=== PATIENT | male | born 1970 | race Caucasian/White ===

== ENCOUNTER 2019-04-29 05:40 | Day surgery (SDC) | payer BC ==
[2019-04-28 15:14] LABS: HEMATOCRIT 37.5 % (42.0-54.0); HEMOGLOBIN 12.6 g/dL (13.5-17.5); MCH 28.8 pg (26.0-34.0); MCHC 33.6 g/dL (31.0-37.0); MCV 85.8 fL (80.0-100.0); MEAN PLATELET VOLUME 9.8 fL (7.4-10.4); RBC 4.37 10x6/uL (4.20-6.10); RDW 12.7 % (11.5-14.5); WBC 7.4 10x3/uL (4.8-10.8)
[~2019-04-29] VITALS: Ht 180.3 cm; Wt 99.8 kg
[~2019-04-29 05:40] MED LIST: ASPIRIN81 MG PO; HYDROCODON-ACE1 EA10 PO; LISINOPRIL20 MG PO; MULTI-DAY VITAM1 TAB PO; ZYRTEC10 MG PO
[2019-04-29 05:57] VITALS: BP 115/73; Ht 180.3 cm; Wt 99.8 kg
[2019-04-29] MEDS ORDERED: HYDROCODON-ACE1 EA10 PO (08:02)
--- NOTE | 2019-04-29 08:36 | NUR ---
DISCHARGED PER ANESTHESIA
--- NOTE | 2019-04-29 09:36 | NUR ---
PATIENT AMBULATES AROUND ROOM USING WALKER WITHOUT DIZZINESS OR UNSTEADINESS. PIV DC'D WITH TIP INTACT. DISCHARGE INSTRUCTIONS REVIEWED WITH PATIENT AND SPOUSE. PATIENT DRESSING IN PERSONAL CLOTHING WITH SPOUSE'S ASSISTANCE
--- NOTE | 2019-04-29 11:35 | OP ---
PATIENT NAME: REYMUNDO GALAVIZ MEDICAL RECORD: [id number] :72 LOCATION:[facility] ADMISSION DATE: SURGEON: MILY SCHNEIDER MD DATE OF OPERATION: 04/29/2019 PREOPERATIVE DIAGNOSES: 1. Medial compartment osteoarthritis. 2. Medial meniscus tear right knee. POSTOPERATIVE DIAGNOSES: 1. Medial compartment osteoarthritis. 2. Medial meniscus tear right knee. PROCEDURES: 1. Arthroscopic partial medial meniscectomy. 2. Arthroscopic chondroplasty and synovectomy. SURGEON: Mily Schneider MD ANESTHESIA: General. INTRAOPERATIVE COMPLICATIONS: None. SUMMARY OF PATHOLOGIC FINDINGS: The patient had what was expected. 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 Generalized synovitis was also noted. OPERATIVE SUMMARY IN DETAIL: After obtaining the appropriate preoperative orthopedic surgery consent as well as anesthetic consultation, evaluation and clearance, the patient was brought to the operating room and placed on the operating table in supine position. After adequate general laryngeal mask airway was administered, tourniquet was placed on the proximal aspect of the right lower extremity. Right lower extremity was then prepped and draped in routine sterile fashion. At this point, time-out was performed. After all agreed, the leg was elevated and exsanguinated and tourniquet inflated to 350 mmHg. Routine inferolateral portal was established, followed by superomedial portal and inferomedial portal. Diagnostic arthroscopy did show the above diagnoses. Combination of an arthroscopic resector as well as a meniscotome was utilized to debride the meniscal tear back to the residual meniscal elements. Gentle chondroplasty of the tibial plateau as well as the distal medial femoral condyle was performed. Generalized synovectomy was also performed of the medial and lateral gutter as well as the suprapatellar pouch. The patellofemoral joint was in good overall position as was the lateral compartment was also in good overall condition. Having completed this, the knee was insufflated with 30 mg of 0.25% Marcaine with epinephrine and 80 mg of Depo-Medrol. Arthroscopy portals were closed in routine interrupted fashion using 4-0 Prolene. Sterile dressings were applied. The patient was awakened and taken to recovery room in stable condition. All final needle and sponge counts were correct. TRANSINT:[id number] Voice Confirmation ID: [id number] DOCUMENT ID: [id number] OPERATIVE REPORT [id number] REYMUNDO GALAVIZ MD, MILY CUBA at 1135 CC: [id number] DICTATION DATE: 04/29/19 0805 TOP ICER: 04/29/19 [id number] [facility] 04/29/19 [id number] [place] [address]
== END 2019-04-29 09:50 | disposition home or self-care (01) ==
LOC: D.OPS 05:40 → D.PAN 13:15 → D.OPS 13:15
PROVIDERS: Anesthesiology; ATTEND Orthopaedic Surgery
DX: M17.11 Unilateral primary osteoarthritis, right knee (principal); S83.241A Other tear of medial meniscus, current injury, right knee, initial encounter